=== PATIENT | female | born 1990 | race Caucasian/White ===

== ENCOUNTER 2016-10-19 09:31 | Inpatient (IN) | payer SELFPAY ==
[~2016-10-19] VITALS: Ht 185.4 cm; Wt 73.4 kg
[2016-10-19] MEDS ORDERED: SUCCINYLCHOLINE 20 MG/ML, 10ML ONE ×2 (09:53→09:57)
[2016-10-19] MEDS ORDERED: ONDANSETRON 2MG/ML, 2ML ONE ×3 (09:53→09:57)
[2016-10-19] MEDS ORDERED: GLYCOPYRROLATE 0.2MG/1ML ONE (09:53)
[2016-10-19] MEDS ORDERED: PROPOFOL 10 MG/ML, 20ML ONE ×2 (09:53→09:57)
[2016-10-19] MEDS ORDERED: NEOSTIGMINE 1 MG/ML, 10ML ONE (09:53)
[2016-10-19] MEDS ORDERED: ROCURONIUM 10 MG/ML ONE ×2 (09:53→09:57)
[2016-10-19] MEDS ORDERED: DEXAMETHASONE 4 MG/ML, 1ML ONE ×2 (09:53→09:57)
[2016-10-19] MEDS ORDERED: CEFAZOLIN 1,000 MG ONE ×2 (09:53→09:57)
[2016-10-19] MEDS ORDERED: MORPHINE SULFATE 4 MG/ML, 1ML ONE ×3 (09:56→13:15)
[2016-10-19] MEDS ORDERED: SODIUM CHLORIDE 0.9% 1,000ML IVBOLUS ONE (10:00)
[2016-10-19] MEDS ORDERED: ONDANSETRON 2MG/ML, 2ML IVPush ONE (10:00)
[2016-10-19] MEDS: MORPHINE SULFATE 4 MG/ML, 1ML IVPush PRN ×2 (10:08→11:23)
[2016-10-19 10:24] LABS: ASPARTATE AMINO TRANSFERASE 24 U/L (15-37); BLOOD UREA NITROGEN 14 mg/dL (7-18)
[2016-10-19] MEDS ORDERED: SODIUM CHLORIDE 0.9% 1,000 ML IV ONE (12:19)
[2016-10-19] MEDS ORDERED: MORPHINE SULFATE 4 MG/ML, 1ML IVPush PRN ×2 (12:30→13:00)
[2016-10-19] MEDS ORDERED: CEFOTETAN PMX 1GM/50ML 50 ML IVPB ONE (12:30)
[2016-10-19] MEDS ORDERED: D5%-0.45% NACL 1,000 ML IV ONE (12:35)
[2016-10-19] MEDS ORDERED: ONDANSETRON 2MG/ML, 2ML IVPush PRN ×3 (13:00→20:30)
[2016-10-19] MEDS ORDERED: SODIUM CHLORIDE FLUSH 10ML SYR IVF PRN (13:00)
[2016-10-19] MEDS ORDERED: CEFOTETAN PMX 1GM/50ML 50 ML ONE (13:10)
[2016-10-19 13:30] VITALS: BP 126/76
[2016-10-19] MEDS: HYDROmorphone 1 MG/ML, 1ML IVPush PRN ×3 (15:11→18:02)
[2016-10-19 17:58] VITALS: BP 117/69
[2016-10-19] MEDS ORDERED: MIDAZOLAM 1 MG/ML, 2ML ONE (18:44)
[2016-10-19] MEDS ORDERED: FENTANYL PF 250 MCG/5ML ONE (18:44)
[2016-10-19] MEDS ORDERED: BUPIVACAINE/PF-EPI 0.5% 1:200K ONE (19:27)
[2016-10-19] MEDS ORDERED: SUGAMMADEX 200 MG/2 ML IVPush ONE (20:15)
[2016-10-19] MEDS ORDERED: OXYcodone 5 MG/5 ML ORAL.SOL UDC PO PRN (20:30)
[2016-10-19] MEDS ORDERED: METOCLOPRAMIDE 5 MG/ML, 2ML IV PRN (20:30)
[2016-10-19] MEDS ORDERED: ACETAMINOPHEN 325 MG TABLET PO PRN (20:30)
[2016-10-19] MEDS ORDERED: LABETALOL 5MG/ML, 20ML IV PRN (20:30)
[2016-10-19] MEDS ORDERED: hydrALAzine 20 MG/ML, 1ML IV PRN (20:30)
[2016-10-19] MEDS: HYDROmorphone 1 MG/ML, 1ML IV PRN ×2 (20:35→20:54)
[2016-10-19] MEDS: FENTANYL PF 100 MCG/2ML IV PRN ×2 (20:42→20:57)
[2016-10-19] MEDS ORDERED: OXYcodone 5 MG/5 ML ORAL.SOL UDC ONE (20:49)
[2016-10-19] MEDS ORDERED: ACETAMINOPHEN 650 MG/20.3 ML UDC ONE (20:49)
[2016-10-19] MEDS ORDERED: HYDROmorphone 1 MG/ML, 1ML ONE (20:49)
[2016-10-19] MEDS ORDERED: FENTANYL PF 100 MCG/2ML ONE (20:55)
[2016-10-19] MEDS ORDERED: MEPERIDINE/PF 25MG/0.5ML ONE (21:00)
[2016-10-19] MEDS ORDERED: MEPERIDINE/PF 25MG/0.5ML IVPush PRN (21:30)
[2016-10-19 21:42] VITALS: BP 109/63
[2016-10-19] MEDS ORDERED: LACTATED RINGERS 1,000 ML IV SCH (22:00)
[2016-10-19] MEDS ORDERED: ONDANSETRON 2MG/ML, 2ML IV PRN (22:00)
[2016-10-19] MEDS ORDERED: HYDROmorphone 1 MG/ML, 1ML IV PRN (22:00)
[2016-10-19] MEDS: OXYcodone/APAP 5/325MG TABLET PO PRN ×2 (23:09→23:40)
[2016-10-20 01:00] VITALS: BP 95/54
[2016-10-20 03:41] VITALS: BP 99/65
[2016-10-20 08:13] VITALS: BP 109/65
[2016-10-20] MEDS: OXYcodone/APAP 5/325MG TABLET PO PRN ×2 (08:21→12:11)
[2016-10-20 12:15] VITALS: BP 127/76
[2016-10-20] MEDS ORDERED: OXYC-302 PO (12:34)
[2016-10-20] MEDS ORDERED: ALPR0.25 PO (12:35)
== END 2016-10-20 12:50 | disposition home or self-care (01) | DRG 343 ==
LOC: ED 12:24 → EDIP 12:35 → 4NOR 13:30 → DCLOUNGE 10-20 12:35
PROVIDERS: ADMIT Surgery; ATTEND Surgery
PROC: 0DTJ4ZZ Resection of Appendix, Percutaneous Endoscopic Approach (ICD-10-PCS; principal; 2016-10-19 21:15)
DX: K35.80 Unspecified acute appendicitis (principal); F17.210 Nicotine dependence, cigarettes, uncomplicated; F41.9 Anxiety disorder, unspecified
CPT/HCPCS: 36415; 74177; 76700; 80053; 81003; 84703; 85025; 88304; 96361; 96374; 96375; 96376; J0690; J1100; J1170; J2175; J2250; J2405; J2704; J2710; J3010; J3490; J0330; J7030; S0074

== ENCOUNTER 2017-09-22 09:35 | Day surgery (SDC) | payer MEDICAID, OTHER ==
[~2017-09-22] VITALS: Ht 185.4 cm; Wt 80.5 kg
[~2017-09-22 09:35] MED LIST: ALPR0.25 PO; OXYC-302 PO
[2017-09-22] MEDS ORDERED: MIDAZOLAM 1 MG/ML, 2ML ONE (09:44)
[2017-09-22] MEDS ORDERED: FENTANYL PF 100 MCG/2ML ONE ×2 (09:44→11:25)
[2017-09-22] MEDS ORDERED: VASOPRESSIN 20 UNIT/ML, 1ML ONE (09:58)
[2017-09-22] MEDS ORDERED: BUPIVACAINE/PF 0.5% ONE (09:58)
[2017-09-22] MEDS ORDERED: EPINEPHRINE 1 MG/ML, 1ML ONE (09:58)
[2017-09-22] MEDS ORDERED: ONDANSETRON ODT 8 MG PO ONE (10:00)
[2017-09-22] MEDS ORDERED: GABAPENTIN 300 MG CAPSULE PO ONE (10:00)
[2017-09-22] MEDS ORDERED: ACETAMINOPHEN 500 MG TABLET PO ONE (10:00)
[2017-09-22 10:02] VITALS: BP 136/79
[2017-09-22 10:12] LABS: HCG UR SG 1.014 (1.003-1.030)
[2017-09-22] MEDS ORDERED: PLEASE ENTER HEIGHT AND WEIGHT MC SCH (10:30)
[2017-09-22] MEDS ORDERED: LIDOCAINE GEL 2%, 5ML ONE (10:33)
[2017-09-22] MEDS ORDERED: LACTATED RINGERS 1,000 ML IV SCH (10:36)
[2017-09-22] MEDS ORDERED: KETOROLAC 30 MG/1 ML ONE (10:38)
[2017-09-22] MEDS ORDERED: HYDROmorphone 1 MG/ML, 1ML IV PRN (11:00)
[2017-09-22] MEDS ORDERED: LIDOCAINE-MPF 1%, 2ML INFIL ONE (11:00)
[2017-09-22] MEDS ORDERED: ONDANSETRON ODT 8 MG PO PRN (11:00)
[2017-09-22] MEDS ORDERED: OXYcodone 5 MG/5 ML ORAL.SOL UDC PO PRN (11:00)
[2017-09-22] MEDS ORDERED: MORPHINE SULFATE 4 MG/ML, 1ML IVPush PRN (11:00)
[2017-09-22] MEDS ORDERED: EPHEDRINE 50 MG/ML, 1ML IM PRN (11:00)
[2017-09-22] MEDS ORDERED: MIDAZOLAM 1 MG/ML, 2ML IV PRN (11:00)
[2017-09-22] MEDS ORDERED: LABETALOL 5MG/ML, 20ML IV PRN (11:00)
[2017-09-22] MEDS ORDERED: PROMETHAZINE 25 MG/ML, 1ML IV PRN (11:00)
[2017-09-22] MEDS ORDERED: PROMETHAZINE 25 MG SUPP PR PRN (11:00)
[2017-09-22] MEDS ORDERED: ALBUTEROL/IPRATROPIUM 2.5MG/0.5MG, 3 ML NPPB PRN (11:00)
[2017-09-22] MEDS ORDERED: FENTANYL PF 100 MCG/2ML IV PRN (11:00)
[2017-09-22] MEDS ORDERED: DIAZEPAM 5 MG/ML, 2ML IVPush PRN (11:00)
[2017-09-22] MEDS ORDERED: CEFAZOLIN 1,000 MG ONE (11:07)
[2017-09-22] MEDS ORDERED: PROPOFOL 10 MG/ML, 20ML ONE (11:07)
[2017-09-22] MEDS ORDERED: DEXAMETHASONE 4 MG/ML, 1ML ONE (11:07)
[2017-09-22] MEDS ORDERED: ONDANSETRON 2MG/ML, 2ML ONE (11:07)
[2017-09-22] MEDS ORDERED: OXYcodone 5 MG/5 ML ORAL.SOL UDC ONE (11:25)
[2017-09-22] MEDS ORDERED: MEPERIDINE/PF 50 MG/ML ONE (11:25)
[2017-09-22] MEDS: MEPERIDINE/PF 25MG/0.5ML IVPush PRN ×2 (11:28→11:40)
== END 2017-09-22 12:45 | disposition home or self-care (01) ==
LOC: OUT 09:35
PROVIDERS: ATTEND Specialist
DX: N87.1 Moderate cervical dysplasia (principal); I25.10 Atherosclerotic heart disease of native coronary artery without angina pectoris
CPT/HCPCS: 57522; 81025; 88305; J0171; J0690; J1100; J1885; J2175; J2250; J2704; J3490; J7120; Q0162; J2405; J3010